=== PATIENT | male | born 1975 | race Caucasian/White ===

== ENCOUNTER 2018-12-22 09:53 | Emergency (ER) | payer BC ==
[2018-12-22] MEDS ORDERED: Dicyclomine 20 MG TAB ONE (10:26)
[2018-12-22 10:35] LABS: #Basophils 0.1 thou/uL (0.0-0.2); #Eosinphils 0.1 thou/uL (0.0-0.7); #Lymphocytes 1.6 thou/uL (1.20-3.40); #Monocytes 0.6 thou/uL (0.11-0.59); #Neutrophils 3.5 thou/uL (1.40-6.50); %Basophils 1.6 % (0.0-1.0); %Eosinophils 2.5 % (0.0-10.0); %Lymphocytes 26.5 % (21.0-51.0); %Monocytes 10.2 % (0.0-10.0); %Neutrophils 59.2 % (42.0-75.0); Hemoglobin 17.5 g/dL (14.0-18.0); Mean Corpuscular HGB CONC 34.5 g/dL (32.0-36.0); Mean Corpuscular Hemoglobin 31.7 pg (27.0-31.0); Mean Corpuscular Volume 91.8 fL (78.0-98.0); Mean Platelet Volume 7.1 fL (7.4-10.4); Platelet Count 265 thou/uL (130-400); RBC Distribution Width 12.1 % (11.5-14.5)
[2018-12-22 10:45] LABS: ALT (SGPT) 86 U/L (8-55); AST (SGOT) 50 U/L (5-34); Albumin 4.4 g/dL (3.5-5.0); Alkaline Phosphatase 70 U/L (40-150); Anion Gap 13 mmol/L (10-20); BUN (Urea Nitrogen) 13 mg/dL (8.9-20.6); Bilirubin, Total 1.1 mg/dL (0.2-1.2); Calc. Creatinine Clearance 0 mL/min (70-130); Calcium 9.8 mg/dL (7.8-10.44); Carbon Dioxide 28 mmol/L (22-29); Chloride 102 mmol/L (98-107); Estimated GFR-MDRD 80; Globulin 3.2 g/dL (2.4-3.5); Glucose 78 mg/dL (70-105); Lipase 14 U/L (8-78); Potassium 4.1 mmol/L (3.5-5.1); Protein, Total 7.6 g/dL (6.0-8.3); Sodium 139 mmol/L (136-145)
--- NOTE | 2018-12-22 12:27 | ULT ---
ULTRASOUND ABDOMEN LIMITED: (RIGHT UPPER QUADRANT) DATE: 12/22/2018. HISTORY: A 43-year-old male with right upper quadrant abdominal pain. FINDINGS: Gallbladder: No mural thickening, pericholecystic edema, or gallstone identified. Incidental finding of an approximately 3 mm gallbladder polyp. Common duct: 5 mm. Liver: Diffusely increased echogenicity which is questionable for fatty liver. In at least 2 of the images, there is what appears to be a 2.5 x 2.5 cm heterogeneously moderately hypoechoic structure wi th irregular margins in the deep field of the liver, possibly abutting the diaphragm. This was not m entioned by the [facility] notes. Pancreas: Nonspecific sonographic appearance. Right kidney: No hydronephrosis. IMPRESSION: 1. No evidence of cholelithiasis, acute cholecystitis, or biliary obstruction. 2. Questionable hepatic steatosis. 3. Questionable focal lesion in the liver parenchyma. Recommend CT of abdomen with and without cont rast (liver mass protocol) on a nonemergent basis. 4. Incidental finding of gallbladder polyp. ARAMIS Vance POS: ANDRES
== END 2018-12-22 11:44 | disposition home or self-care (01) ==
LOC: SCSER 09:53
DX: R16.0 Hepatomegaly, not elsewhere classified (principal); R10.10 Upper abdominal pain, unspecified; R10.13 Epigastric pain; F17.210 Nicotine dependence, cigarettes, uncomplicated; Z79.899 Other long term (current) drug therapy
CPT/HCPCS: 76705; 80053; 83690; 85025

== ENCOUNTER 2019-01-02 07:43 | Outpatient (CLI) | payer BC ==
--- NOTE | 2019-01-02 08:37 | CT ---
CT Abdomen W WO Con History: Liver lesion Comparison: Ultrasound gallbladder December 22, 2018 Findings: Lung bases are clear. No pericardial effusion. No hepatic mass is appreciated. No focal area of hyper enhancement or hypoenhancement. No abnormality of the liver seen on any of the phases. There is focal fatty infiltration within hepatic segment IVb near the falciform ligament. The portal vein is patent. Spleen, pancreas, gallbladder are all normal. No hydronephrosis. Aortic contour is normal. No retrope ritoneal adenopathy. Skeleton is unremarkable. Impression: Normal examination. Previously described questionable mass was likely artifactual.
== END 2019-01-02 07:44 | disposition home or self-care (01) ==
LOC: SCSCT 07:43
PROVIDERS: ATTEND Family Medicine
DX: K76.9 Liver disease, unspecified (principal)
CPT/HCPCS: 74170